=== PATIENT | female | born 1960 | race Caucasian/White ===

== ENCOUNTER → 2016-10-01 | Outpatient (CLI) | payer MEDICARE, BC | LOC: US 13:30 | DX: C49.9 Malignant neoplasm of connective and soft tissue, unspecified (principal); C73 Malignant neoplasm of thyroid gland | CPT/HCPCS: 76881 ==

== ENCOUNTER → 2020-06-27 | Day surgery (SDC) | payer MEDICARE, SELFPAY ==
[~2020-06-27] MED LIST: ACCUPRIL 20 MG20 MG PO; ASPIRIN 325MG325 MG PO; BENZONATATE200 MG PO; BUSPAR 10MG10 MG PO; CARDIZEM 60MG T60 MG PO; FLONASE 0.05% N16 GM; GABAPENTIN800 MG PO; HYDROCODON-ACE1 EAC6 PO; LEVOTHYROXINE125 MCG PO; MONTELUKAST SOD10 MG PO; PRAVASTATIN SOD20 MG PO; PROTONIX 40 MG40 M1 PO; TOPIRAMATE50 MG PO; VIT B
== END | disposition home or self-care (01) ==
LOC: OR 07:42
DX: K29.51 Unspecified chronic gastritis with bleeding (principal); B96.81 Helicobacter pylori [H. pylori] as the cause of diseases classified elsewhere; K44.9 Diaphragmatic hernia without obstruction or gangrene; K21.00 Gastro-esophageal reflux disease with esophagitis, without bleeding; I25.10 Atherosclerotic heart disease of native coronary artery without angina pectoris; I10 Essential (primary) hypertension; E78.5 Hyperlipidemia, unspecified; M19.90 Unspecified osteoarthritis, unspecified site; F41.9 Anxiety disorder, unspecified; C73 Malignant neoplasm of thyroid gland; E03.9 Hypothyroidism, unspecified; E66.01 Morbid (severe) obesity due to excess calories; M79.7 Fibromyalgia; Z88.2 Allergy status to sulfonamides; Z88.3 Allergy status to other anti-infective agents; Z88.8 Allergy status to other drugs, medicaments and biological substances; Z80.9 Family history of malignant neoplasm, unspecified; Z82.49 Family history of ischemic heart disease and other diseases of the circulatory system; Z82.0 Family history of epilepsy and other diseases of the nervous system; Z98.51 Tubal ligation status; Z90.49 Acquired absence of other specified parts of digestive tract; Z68.35 Body mass index [BMI] 35.0-35.9, adult; Z79.82 Long term (current) use of aspirin; Z79.899 Other long term (current) drug therapy
CPT/HCPCS: 88342; J2001; J2704; J7040

== ENCOUNTER → 2020-11-10 | Outpatient (CLI) | payer MEDICARE | LOC: RAD 11-07 08:30 | DX: K31.1 Adult hypertrophic pyloric stenosis (principal); K25.7 Chronic gastric ulcer without hemorrhage or perforation; K22.4 Dyskinesia of esophagus; K44.9 Diaphragmatic hernia without obstruction or gangrene | CPT/HCPCS: 74246 ==

== ENCOUNTER → 2020-11-20 | Outpatient (CLI) | payer MEDICARE | LOC: KOH-I 08:10 | DX: N94.10 Unspecified dyspareunia (principal); R10.9 Unspecified abdominal pain; Z90.710 Acquired absence of both cervix and uterus | CPT/HCPCS: 76856 ==

== ENCOUNTER 2021-01-15 11:00 | Emergency (ER) | payer MEDICARE ==
[~2021-01-15] VITALS: Ht 165.1 cm; Wt 99.8 kg
[2021-01-15 12:01] LABS: HEMOGLOBIN 12.5 gm/dl (12.3-15.3); RED BLOOD COUNT 3.75 M/UL (4.00-5.10); WHITE BLOOD COUNT 4.4 K/UL (4.5-11.0)
== END 2021-01-15 14:00 | disposition home or self-care (01) ==
LOC: ER1 11:00
PROVIDERS: Physician Assistant
DX: Z23 Encounter for immunization (principal); U07.1 COVID-19; E78.5 Hyperlipidemia, unspecified; I10 Essential (primary) hypertension; Z88.1 Allergy status to other antibiotic agents; Z88.8 Allergy status to other drugs, medicaments and biological substances
CPT/HCPCS: 80053; 85025; 99283; M0243

== ENCOUNTER → 2021-02-08 | Outpatient (CLI) | payer MEDICARE | LOC: MAMO 13:03 | DX: Z12.31 Encounter for screening mammogram for malignant neoplasm of breast (principal) | CPT/HCPCS: 77063; 77067 ==

== ENCOUNTER → 2021-12-12 | Outpatient (CLI) | payer MEDICARE | LOC: KOH-I 11:26 | DX: M25.562 Pain in left knee (principal); M17.12 Unilateral primary osteoarthritis, left knee | CPT/HCPCS: 73562 ==

== ENCOUNTER → 2022-02-26 | Outpatient (CLI) | payer MEDICARE | LOC: MAMO 09:30 | DX: Z12.31 Encounter for screening mammogram for malignant neoplasm of breast (principal) | CPT/HCPCS: 77063; 77067 ==